=== PATIENT | male | born 1975 | race Caucasian/White ===

== ENCOUNTER 2016-06-10 04:50 | Emergency (ER) | payer MEDICAID ==
[~2016-06-10] VITALS: Ht 172.7 cm; Wt 81.6 kg
--- NOTE | 2016-06-10 04:50 | NUR ---
PT TAKEN TO BED 4
--- NOTE | 2016-06-10 04:50 | NUR ---
Dr. Wang evaluating patient at bedside.
--- NOTE | 2016-06-10 04:55 | NUR ---
X-Ray at bedside.
[2016-06-10 04:59] VITALS: BP 133/84
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
--- NOTE | 2016-06-10 05:03 | NUR ---
[facility] AND PD WAS ENROUTE NOW.
[2016-06-10 05:15] VITALS: BP 133/86
--- NOTE | 2016-06-10 05:18 | NUR ---
PT TAKEN BY [facility]SPORT TO [facility]
--- NOTE | 2016-06-10 05:23 | NUR ---
Patient to be transferred to [facility]. Is being transferred due to HIGHER LEVEL OF CARE. Receiving facility has accepting physician and available space. ER physician has signed transfer form. Patient or responsible green party has agreed to transfer and signed form. Patient belongings inventoried and will be sent with patient. Copy of nursing notes, lab reports, EKG, Physicians Orders and X-rays to be sent with patient. Report called to BJORN MENJIVAR at receiving facility. PT TRASFERRED BY [id number] AT [id number].
[2016-06-10] MEDS ORDERED: NACL 0.9% 1,000 ML IV ONE ×2 (06:00)
== END 2016-06-10 05:18 | disposition short-term general hospital (02) ==
LOC: MED 04:50
DX: S41.112A Laceration without foreign body of left upper arm, initial encounter (principal); S21.112A Laceration without foreign body of left front wall of thorax without penetration into thoracic cavity, initial encounter; S46.322A Laceration of muscle, fascia and tendon of triceps, left arm, initial encounter; S31.114A Laceration without foreign body of abdominal wall, left lower quadrant without penetration into peritoneal cavity, initial encounter; S71.112A Laceration without foreign body, left thigh, initial encounter; X99.1XXA Assault by knife, initial encounter; Y93.89 Activity, other specified; Y92.89 Other specified places as the place of occurrence of the external cause; Y99.8 Other external cause status
CPT/HCPCS: 71010; 99285; J7030; Q0092

== ENCOUNTER 2016-07-11 18:22 | Emergency (ER) | payer MEDICAID ==
[~2016-07-11] VITALS: Ht 175.3 cm; Wt 83.5 kg
[2016-07-11 18:54] VITALS: BP 122/82
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
--- NOTE | 2016-07-11 19:53 | NUR ---
Patient noted to have existing wounds upon arrival to ER. Wound covered with dressing. Physician informed.
[2016-07-11 19:54] VITALS: BP 119/79
== END 2016-07-11 19:54 | disposition home or self-care (01) ==
LOC: MED 18:22
DX: Z48.02 Encounter for removal of sutures (principal)

== ENCOUNTER 2017-05-31 21:06 | Emergency (ER) | payer MEDICAID, OTHER ==
[~2017-05-31] VITALS: Ht 175.3 cm; Wt 79.4 kg
[2017-05-31 21:07] VITALS: BP 112/65
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
[2017-05-31] MEDS ORDERED: cefTRIAXone 1,000 MG in LIDOCAINE MPF 1% - **ER/OR** 2.1 ML IM ONE (21:40)
[2017-05-31] MEDS ORDERED: KETOROLAC 60 MG/2 ML VIAL IM ONE (21:40)
--- NOTE | 2017-05-31 22:14 | NUR ---
Patient discharged with v/s stable BY DR SHARP. Written and verbal after care instructions given and explained BY DR SHARP. Patient alert, oriented and verbalized understanding of instructions. Ambulatory with steady gait. All questions addressed prior to discharge. ID band removed. Patient advised to follow up with PMD. Rx of NAPROSYN 500MG AND AUGMENTIN 875MG given. Patient educated on indication of medication including possible reaction and side effects. Opportunity to ask questions provided and answered.
[2017-05-31 22:24] VITALS: BP 119/71
== END 2017-05-31 22:14 | disposition home or self-care (01) ==
LOC: MED 21:06
DX: J02.9 Acute pharyngitis, unspecified (principal); F41.9 Anxiety disorder, unspecified; Z95.1 Presence of aortocoronary bypass graft
CPT/HCPCS: 96372; 99284; J0696; J1885; J2001

== ENCOUNTER 2017-10-03 11:08 | Emergency (ER) | payer OTHER ==
[~2017-10-03] VITALS: Ht 175.3 cm; Wt 76.2 kg
[2017-10-03 11:09] VITALS: BP 106/43
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
--- NOTE | 2017-10-03 11:26 | NUR ---
DR LE AT BEDSIDE FOR STAPLE REMOVAL. 26 LANCE REMOVED IN TOTAL. PT TOLERATED WELL
[2017-10-03] MEDS ORDERED: NEOMYCIN/POLYMYXIN/BACITRACIN 0.9 GM/1 PKT TP ONE (11:50)
[2017-10-03 12:31] VITALS: BP 113/56
--- NOTE | 2017-10-03 12:31 | NUR ---
Patient discharged with v/s stable. Written and verbal after care instructions given and explained. Patient verbalized understanding. Ambulatory with steady gait. All questions addressed prior to discharge. Advised to follow up with PMD.
== END 2017-10-03 12:31 | disposition home or self-care (01) ==
LOC: MED 11:08
DX: Z48.02 Encounter for removal of sutures (principal)
CPT/HCPCS: 99282

== ENCOUNTER 2019-09-07 14:03 | Emergency (ER) | payer OTHER ==
[~2019-09-07] VITALS: Ht 172.7 cm; Wt 79.4 kg
[2019-09-07 14:08] VITALS: BP 129/77
--- NOTE | 2019-09-07 14:10 | NUR ---
43 Y/O M C/C LUQ PAIN, NON RADIATING, 6/10 PAIN, CRUSHING/SMASHING SENSATION, CARRYING WEIGHT EXARCERBATES PAIN, NOTHING ALLEVIATES PAIN X 1 MONTH. PT FURTHER STATES NOTICED HEMATOCHEZIA X 2 DAYS AND SPITTING BLOOD X 3 DAYS, DENIES ORAL TRAUMA. DENIES DYSURIA. NKA. NO HX. NO RX. NO NVD. SIDE RAIL X1.
--- NOTE | 2019-09-07 14:51 | NUR ---
PT TAKEN TO CT VIA WHEELCHAIR
--- NOTE | 2019-09-07 15:12 | NUR ---
LAB AT BEDSIDE
--- NOTE | 2019-09-07 15:13 | NUR ---
PT RESTING IN BED, SIDE RAIL X1
[2019-09-07 15:30] LABS: BASOPHILS % (AUTO) 0.4 % (0.0-2.0); EOSINOPHILS # (AUTO) 0.4 K/uL (0-0.4); EOSINOPHILS % (AUTO) 4.8 % (0.0-4.0); HEMATOCRIT 39.6 % (36-52); HEMOGLOBIN 13.1 g/dL (12.0-18.0); LYMPHOCYTES # (AUTO) 2.6 K/uL (2.0-11.5); LYMPHOCYTES % (AUTO) 29.4 % (20.5-51.1); MEAN CORPUSCULAR HEMOGLOBIN 30 pg (27-31); MEAN CORPUSCULAR HGB CONC 33 g/dL (33-37); MEAN CORPUSCULAR VOLUME 91.4 fL (80-94); MONOCYTES # (AUTO) 0.9 K/uL (0.8-1.0); MONOCYTES % (AUTO) 10.4 % (1.7-9.3); NEUTROPHILS # (AUTO) 4.9 K/uL (1.8-7.7); PLATELET COUNT (AUTO) 219 K/uL (140-450); RED BLOOD CELL COUNT(AUTO) 4.33 MIL/uL (4.20-6.10); RED CELL DISTRIBUTION WIDTH 14.3 % (11.6-13.7); WHITE BLOOD COUNT (AUTO) 8.9 K/uL (4.8-10.8)
[2019-09-07 15:48] LABS: ALBUMIN 3.6 g/dL (3.4-5.0); ANION GAP 11.4 (8-16); CARBON DIOXIDE 30.4 mmol/L (21-32); CREATININE 1.4 mg/dL (0.6-1.3); POTASSIUM 3.8 mmol/L (3.5-5.1); TOTAL BILIRUBIN 0.2 mg/dL (0.0-1.0)
[2019-09-07 16:08] VITALS: BP 125/74
== END 2019-09-07 16:08 | disposition home or self-care (01) ==
LOC: MED 14:03
DX: K59.00 Constipation, unspecified (principal); K63.1 Perforation of intestine (nontraumatic)
CPT/HCPCS: 36415; 80053; 85025; 99284

== ENCOUNTER 2020-02-02 08:50 | Emergency (ER) | payer OTHER, SELFPAY ==
[~2020-02-02] VITALS: Ht 175.3 cm; Wt 86.2 kg
[2020-02-02 09:03] VITALS: BP 138/97
--- NOTE | 2020-02-02 09:07 | NUR ---
44 y/m presents to ed for sob and weakness x 7 days. pt reports productive cough, dizziness and nausea. denies fever or diarrhea. pt reports he was just discharged from [facility] x 7 days ago, unknown of covid exposure. pt also reports chronic low back pain 09/26. pmh- hay fever rx- denies nkda
--- NOTE | 2020-02-02 09:08 | NUR ---
pt in tent to be assessed by ermd
[2020-02-02 09:33] VITALS: BP 138/97
--- NOTE | 2020-02-02 09:33 | NUR ---
PT REFUSED TO BE SWABBED FOR COVID
--- NOTE | 2020-02-02 09:33 | NUR ---
Patient discharged with v/s stable. Written and verbal after care instructions given and explained. Patient alert, oriented and verbalized understanding of instructions. Ambulatory with steady gait. All questions addressed prior to discharge. ID band removed. Patient advised to follow up with PMD. Rx of ROBAXIN given. Patient educated on indication of medication including possible reaction and side effects. Opportunity to ask questions provided and answered.
== END 2020-02-02 09:33 | disposition home or self-care (01) ==
LOC: MED 08:50
DX: R53.1 Weakness (principal); R05 Cough; Z20.828 Contact with and (suspected) exposure to other viral communicable diseases
CPT/HCPCS: 99283

== ENCOUNTER 2021-10-13 22:37 | Emergency (ER) | payer OTHER ==
[~2021-10-13] VITALS: Ht 172.7 cm; Wt 81.6 kg
[2021-10-13 22:37] VITALS: BP 113/74
--- NOTE | 2021-10-13 22:38 | NUR ---
TO LOBBY A/W BED VIA WHEEL CHAIRCHUCHO FROM HOME, WITH C/O GEN WEAKNESS, ETOH
--- NOTE | 2021-10-13 22:41 | NUR ---
SEEN AND EXAMINED BY PABLO
--- NOTE | 2021-10-13 23:00 | NUR ---
SWABS FOR AMAN AND INFLUENZA SENT TO LAB
[2021-10-13] MEDS ORDERED: ALBU0.0912 IH (23:47)
[2021-10-13] MEDS ORDERED: PRED20TA5 PO (23:47)
--- NOTE | 2021-10-13 23:54 | NUR ---
ALL RESULTS BACK AND NOTED BY ERMD FOR D/C
--- NOTE | 2021-10-14 00:10 | NUR ---
Patient discharged with v/s stable. Written and verbal after care instructions given and explained. Patient alert, oriented and verbalized understanding of instructions. Ambulatory with steady gait. All questions addressed prior to discharge. ID band removed. Patient advised to follow up with PMD. Rx of PREDNISONE AND ALBUTEROL given. Patient educated on indication of medication including possible reaction and side effects. Opportunity to ask questions provided and answered.
== END 2021-10-14 00:10 | disposition home or self-care (01) ==
LOC: MED 22:37
DX: R05.9 Cough, unspecified (principal); Z20.822 Contact with and (suspected) exposure to COVID-19
CPT/HCPCS: 71045; 99284

== ENCOUNTER 2022-08-16 12:33 | Emergency (ER) | payer OTHER ==
[~2022-08-16] VITALS: Ht 162.6 cm; Wt 68.0 kg
[~2022-08-16 12:33] MED LIST: ALBU0.0912 IH; PRED20TA5 PO
[2022-08-16 12:56] VITALS: BP 129/88; PULSE 106; RESP 18; TEMP 98.1; O2SAT 98
[2022-08-16] MEDS ORDERED: IBUPROFEN 600 MG TAB PO ONE (13:15)
[2022-08-16] MEDS ORDERED: ACETAMINOPHEN EXTRA STRENGTH 500 MG TAB PO ONE (13:15)
[2022-08-16] MEDS ORDERED: LIDOCAINE MPF 1% 10 MG/ML VIAL INJ ONE (13:30)
[2022-08-16] MEDS ORDERED: ACET-10509 PO (14:45)
[2022-08-16] MEDS ORDERED: IBUP-2213 PO (14:45)
[2022-08-16] MEDS ORDERED: CLIN150C1 PO (14:45)
[2022-08-16] MEDS ORDERED: LIDOCAINE MPF 1% 5 ML ONE (15:20)
[2022-08-16] MEDS ORDERED: ACETAMINOPHEN EXTRA STRENGTH 500 MG TAB ONE (15:32)
[2022-08-16] MEDS ORDERED: IBUPROFEN 600 MG TAB ONE (15:33)
--- NOTE | 2022-08-16 16:10 | NUR ---
WOUND TO R PINKY IRRIGATED AND DRESSED. LONG FINGER SPLINT APPLIED WITH PA ASSIST AND BANDAGED.
--- NOTE | 2022-08-16 17:20 | NUR ---
Patient discharged with v/s stable. Written and verbal after care instructions given and explained. Patient verbalized understanding. Ambulatory with to home. All questions addressed prior to discharge. Advised to follow up with PMD.
== END 2022-08-16 17:20 | disposition home or self-care (01) ==
LOC: MED 12:33
DX: S62.616A Displaced fracture of proximal phalanx of right little finger, initial encounter for closed fracture (principal); Z79.899 Other long term (current) drug therapy; Y04.0XXA Assault by unarmed brawl or fight, initial encounter; Y93.89 Activity, other specified; Y92.89 Other specified places as the place of occurrence of the external cause; Y99.8 Other external cause status
CPT/HCPCS: 26725; 73130; 73140; 99284; J2001; 64450; Q0092